=== PATIENT | female | born 1985 | race Caucasian/White ===

== ENCOUNTER → 2021-03-31 | Outpatient (CLI) | payer BC ==
--- NOTE | 2021-03-31 13:12 | CARD ---
MR#: [id number] Date of Study: 03/31/2021 Ordering Physician: GAUDENCIO SEAMAN, Referring Physician: GAUDENCIO SEAMAN, Tech: Jerrica Red [facility] APPROVED REPORT EXAM: Two-dimensional and M-mode echocardiogram with Doppler and color Doppler. Other Information Quality : Technically LimitedHR: 71bpm Rhythm : NSR INDICATION Arrhythmia RISK FACTORS Hypertension 2D DIMENSIONS RVDd2.6 (2.9-3.5cm)Left Atrium(2D)3.5 (1.6-4.0cm) IVSd0.9 (0.7-1.1cm)Aortic Root(2D)3.5 (2.0-3.7cm) LVDd4.5 (3.9-5.9cm)LVOT Diameter2.6 (1.8-2.4cm) PWd1.0 (0.7-1.1cm)LVDs2.4 (2.5-4.0cm) FS (%) 48.0 %SV74.9 ml LVEF(%)79.5 (>50%) Aortic Valve AoV Peak Rafael.128.2cm/sAoV VTI21.5cm AO Peak GR.6.6mmHgLVOT Peak Rafael.108.5cm/s AO Mean GR.3mmHgAVA (VMAX)4.50cm2 Mitral Valve MV E Zeekibwt32.9cm/sMV DECEL QUBO469qy MV A Tojutnnj55.5cm/sE/A Ratio1.0 Pulmonary Valve PV Peak Kzhewkvy849.1cm/s LEFT VENTRICLE The left ventricle is normal size. There is normal left ventricular wall thickness. The left ventricu lar systolic function is normal. Estimated ejection fraction 60-65%. There is normal LV segmental wa ll motion. The left ventricular diastolic function and filling is normal for age. RIGHT VENTRICLE The right ventricle is normal size. There is normal right ventricular wall thickness. The right ventr icular systolic function is normal. ATRIA The left atrium size is normal. The right atrium size is normal. The interatrial septum is intact wit h no evidence for an atrial septal defect or patent foramen ovale as noted on 2-D or Doppler imaging. AORTIC VALVE The aortic valve is normal in structure and function. Doppler and Color Flow revealed no significant aortic regurgitation. There is no significant aortic valvular stenosis. MITRAL VALVE The mitral valve is normal in structure and function. There is no evidence of mitral valve prolapse. There is no mitral valve stenosis. Doppler and Color Flow revealed no mitral valve regurgitation note d. TRICUSPID VALVE The tricuspid valve is normal in structure and function. Doppler and Color Flow revealed no tricuspid valve regurgitation noted. There is no tricuspid valve stenosis. PULMONIC VALVE The pulmonary valve is normal in structure and function. Doppler and Color Flow revealed no pulmonic valvular regurgitation. GREAT VESSELS The aortic root is normal in size. The ascending aorta is normal in size. The IVC is normal in size a nd collapses >50% with inspiration. PERICARDIAL EFFUSION There is no evidence of significant pericardial effusion. Critical Notification Critical Value: No <Conclusion> The left ventricular systolic function is normal. Estimated ejection fraction 60-65%. There is normal LV segmental wall motion. There is no evidence of significant pericardial effusion. Signed by : Asa Gonsalez, Electronically Approved : 03/31/2021 13:12:24
== END ==
LOC: ECHO 08:39
PROVIDERS: ATTEND Internal Medicine Cardiovascular Disease
DX: R00.0 Tachycardia, unspecified (principal); I49.9 Cardiac arrhythmia, unspecified
CPT/HCPCS: 93306

== ENCOUNTER → 2021-05-06 | Outpatient (CLI) | payer BC ==
--- NOTE | 2021-05-06 16:03 | CARD ---
MR#: [id number] Date of Study: 05/06/2021 Ordering Physician: GAUDENCIO SEAMAN, Referring Physician: GAUDENCIO SEAMAN, Tech: APPROVED REPORT EXAM Loop Recorder Reason for procedure: Arrhythmia and tachycardia-bradycardia syndrome. Procedure details: 73-year-old male presented to the procedure suite for a planned outpatient loop recorder implantation for monitoring of atrial fibrillation. The left chest was prepped and draped in usual sterile fashi on. Under 1% lidocaine local anesthesia a 0.5 inch incision was made. Next a subcutaneous tunnel wa s created and a [employer] implantable loop recorder with serial number [id number] was placed with R wave of 0.43 mV. The incision was then closed with Steri-Strips. No acute complications. CONCLUSION 1. Successful insertion of a [employer] implantable loop recorder for monitoring of tachyarrhythmias. Signed by : Gaudencio Seaman, Electronically Approved : 05/06/2021 16:03:09
== END | disposition home or self-care (01) ==
LOC: LINQ 09:43
PROVIDERS: ATTEND Internal Medicine Cardiovascular Disease
DX: I49.5 Sick sinus syndrome (principal); I49.9 Cardiac arrhythmia, unspecified
CPT/HCPCS: 33285; C1764